=== PATIENT | female | born 1945 | race Caucasian/White ===

== ENCOUNTER 2018-07-13 15:02 | Outpatient (CLI) | payer MEDICARE ==
[~2018-07-13 15:02] MED LIST: ADVAIR INH; ALBU18HF INH; BLOOD PRESSURE MED; BUDE10.2 INH; FURO-93 PO; LISI-466 PO; LISI5TAB7 PO; OMNIPAQUE 350 MG/ML, 100ML BOTTLE ONE; POTA10TA5 PO
[2018-07-18] MEDS ORDERED: POTA10CA PO (13:31)
[2018-07-18] MEDS ORDERED: FURO20TA3 PO (13:31)
[2018-07-18] MEDS ORDERED: iron PO (13:31)
== END 2018-07-13 23:59 | disposition home or self-care (01) ==
LOC: CFH 15:02
PROVIDERS: ATTEND Thoracic Surgery (Cardiothoracic Vascular Surgery)
DX: I70.0 Atherosclerosis of aorta (principal); K44.9 Diaphragmatic hernia without obstruction or gangrene; R91.1 Solitary pulmonary nodule; I10 Essential (primary) hypertension; K21.9 Gastro-esophageal reflux disease without esophagitis; M19.90 Unspecified osteoarthritis, unspecified site; Z79.899 Other long term (current) drug therapy; Z87.891 Personal history of nicotine dependence; E78.00 Pure hypercholesterolemia, unspecified
CPT/HCPCS: 71275; 82565; Q9967

== ENCOUNTER 2018-07-19 04:29 | Inpatient (IN) | payer MEDICARE ==
[2018-07-18 14:04] LABS: MICROSCOPIC NOT IND
[2018-07-18 14:13] LABS: BASOPHILS # (AUTO) 0.04 x10^3/uL (0-0.1); BASOPHILS % (AUTO) 0 % (0-1); EOSINOPHILS # (AUTO) 0.05 x10^3/uL (0-0.4); EOSINOPHILS % (AUTO) 1 % (1-7); LYMPHOCYTES # (AUTO) 0.97 x10^3/uL (1-3.4); LYMPHOCYTES % (AUTO) 10 % (22-44); MD NO; MEAN CORPUSCULAR HEMOGLOBIN 26.2 pg (27.0-34.8); MEAN CORPUSCULAR HGB CONC 31.5 g/dL (32.4-35.8); MEAN CORPUSCULAR VOLUME 83.1 fL (80-100); MEAN PLATELET VOLUME 9.8 fL (7.4-10.4); MONOCYTES # (AUTO) 0.52 x10^3/uL (0.2-0.8); MONOCYTES % (AUTO) 6 % (2-9); NEUTROPHILS # (AUTO) 7.92 x10^3/uL (1.8-6.8); NEUTROPHILS % (AUTO) 83 % (42-75); PLATELET COUNT 349 x10^3/uL (130-400); RED CELL DISTRIBUTION WIDTH 20.1 % (9.6-15.2)
[2018-07-18 14:17] LABS: CHLORIDE 115 mmol/L (98-107)
[2018-07-18 14:23] LABS: ALANINE AMINOTRANSFERASE 9 U/L (12-78); ALBUMIN 3.6 g/dL (3.4-5.0); ALKALINE PHOSPHATASE 109 U/L (45-117); ANION GAP 9 mmol/L (5-15); BILIRUBIN,TOTAL 0.5 mg/dL (0.2-1.0); CALCIUM 8.6 mg/dL (8.5-10.1); CREATININE 1.64 mg/dL (0.55-1.02); TOTAL PROTEIN 7.9 g/dL (6.4-8.2)
[2018-07-18 14:28] LABS: INTERNATIONAL NORMALIZED RATIO 1.01 (0.93-1.1); PROTHROMBIN TIME 10.6 Seconds (9.6-11.5)
[2018-07-18 15:01] LABS: HEMOGLOBIN A1C 5.4 % (4.2-6.3)
[~2018-07-19] VITALS: Ht 160 cm; Wt 126.9 kg
[~2018-07-19 04:29] MED LIST changes: +FURO20TA3 PO; -OMNIPAQUE 350 MG/ML, 100ML BOTTLE ONE; +POTA10CA PO; +iron PO
[2018-07-19] MEDS ORDERED: INSULIN LISPRO 100 UNITS/ML, PEN SQ-INSULIN SCH (05:00)
[2018-07-19] MEDS ORDERED: DO NOT GIVE MC SCH (05:00)
[2018-07-19] MEDS ORDERED: CHLORHEXIDINE 15 ML UDC MM SCH (05:00)
[2018-07-19] MEDS ORDERED: DO NOT GIVE XX SCH (05:00)
[2018-07-19] MEDS: MUPIROCIN OINT 2%, 22GM TP SCH ×2 (05:26→20:25)
[2018-07-19] MEDS: SODIUM CHLORIDE FLUSH 10ML SYR IVF SCH ×3 (05:32→20:14)
[2018-07-19] MEDS ORDERED: MIDAZOLAM 10MG/2 ML ONE (07:09)
[2018-07-19] MEDS ORDERED: FENTANYL PF 250 MCG/5ML ONE ×4 (07:10)
[2018-07-19] MEDS ORDERED: ALBUMIN HUMAN 5% 500 ML IV PRN (07:30)
[2018-07-19] MEDS ORDERED: REGULAR INSULIN 62.5 UNITS in SODIUM CHLORIDE 0.9% 249.375 ML IV PRN ×2 (07:30→09:40)
[2018-07-19] MEDS ORDERED: PHENYLEPHRINE 10 MG in SODIUM CHLORIDE 0.9% 249 ML IV PRN ×2 (07:30→09:40)
[2018-07-19] MEDS ORDERED: MANNITOL PMX 20% 500 ML IVPB PRN (07:30)
[2018-07-19] MEDS ORDERED: CEFUROXIME 1.5 GM in SODIUM CHLORIDE 0.9% 50 ML IVPB PRN (07:30)
[2018-07-19] MEDS ORDERED: POTASSIUM CHLORIDE 80 MEQ, SODIUM BICARBONATE 8.4% 10 MEQ, MAGNESIUM SULFATE 0.5 GM, LI... IV PRN (07:30)
[2018-07-19] MEDS ORDERED: VANCOMYCIN 1,800 MG in SODIUM CHLORIDE 0.9% 250 ML IV PRN (07:30)
[2018-07-19] MEDS ORDERED: EPINEPHRINE 2 MG in SODIUM CHLORIDE 0.9% 248 ML IV SCH (07:30)
[2018-07-19] MEDS ORDERED: DEXMEDETOMIDINE 200 MCG in SODIUM CHLORIDE 0.9% 48 ML IV SCH (07:30)
[2018-07-19] MEDS: DOCUSATE 100 MG CAPSULE PO SCH ×2 (09:00→20:18)
[2018-07-19] MEDS ORDERED: VASOPRESSIN 50 UNIT in SODIUM CHLORIDE 0.9% 247.5 ML IV PRN (09:40)
[2018-07-19] MEDS ORDERED: SODIUM CHLORIDE 0.9% 1,000 ML IV PRN (09:40)
[2018-07-19] MEDS ORDERED: DEXMEDETOMIDINE 200 MCG in SODIUM CHLORIDE 0.9% 48 ML IV PRN (09:40)
[2018-07-19] MEDS ORDERED: DOBUTAMINE 250 MG in SODIUM CHLORIDE 0.9% 230 ML IV PRN (09:40)
[2018-07-19] MEDS ORDERED: NITROGLYCERIN/D5W PMX 250 ML IV PRN (09:40)
[2018-07-19] MEDS: KSCALE TO 4.5 IV SCH ×3 (10:00→22:25)
[2018-07-19] MEDS ORDERED: ACETAMINOPHEN 650 MG SUPP PR PRN (10:00)
[2018-07-19] MEDS ORDERED: SODIUM BICARB 8.4%, 50ML SYRINGE IV PRN (10:00)
[2018-07-19] MEDS ORDERED: INSULIN REGULAR 100 UNITS/ML, 3ML VIAL IVPush PRN (10:00)
[2018-07-19] MEDS ORDERED: DEXTROSE 50%, 50ML SYRINGE IVPush PRN (10:00)
[2018-07-19] MEDS ORDERED: BISACODYL 10 MG SUPP PR PRN (10:00)
[2018-07-19] MEDS: ASPIRIN 81 MG TABLET EC PO SCH (10:00)
[2018-07-19] MEDS ORDERED: ACETAMINOPHEN 325 MG TABLET PO PRN (10:00)
[2018-07-19] MEDS ORDERED: BISACODYL 5 MG EC TABLET PO PRN (10:00)
[2018-07-19] MEDS ORDERED: GLUCAGON 1 MG IM PRN (10:00)
[2018-07-19] MEDS ORDERED: MIDAZOLAM 1 MG/ML, 5ML IVPush PRN (10:00)
[2018-07-19] MEDS ORDERED: FENTANYL PF 100 MCG/2ML IVPush PRN (10:00)
[2018-07-19] MEDS ORDERED: morphine SULFATE 10 MG/ML, 1ML IVPush PRN (10:00)
[2018-07-19] MEDS ORDERED: LACTATED RINGERS 1,000 ML IV PRN (10:00)
[2018-07-19] MEDS ORDERED: PROCHLORPERAZINE 5 MG/ML, 2ML IVPush PRN (10:00)
[2018-07-19] MEDS ORDERED: DEXTROSE 4 GM TAB.CHEW PO PRN (10:00)
[2018-07-19] MEDS ORDERED: HYDROcodone/APAP 10/325 MG TABLET PO PRN (10:00)
[2018-07-19] MEDS ORDERED: PROTAMINE SULFATE 10 MG/ML, 25ML ONE ×2 (10:30)
[2018-07-19] MEDS: INSULIN LISPRO 100 UNITS/ML, PEN SQ-INSULIN SCH ×3 (11:00→20:25)
[2018-07-19] MEDS ORDERED: ROCURONIUM 10MG/ML,5ML ONE ×2 (11:06)
[2018-07-19] MEDS ORDERED: CALCIUM CHLORIDE 10%, 10ML SYR ONE (11:06)
[2018-07-19] MEDS ORDERED: PROPOFOL 10 MG/ML, 20ML ONE (11:06)
[2018-07-19] MEDS ORDERED: AMINOCAPROIC ACID 250 MG/ML, 20ML ONE ×2 (11:06)
[2018-07-19 12:45] LABS: GLUCOSE BY BLOOD GAS ANALYZER 93 mg/dL (70-110); HEMOGLOBIN BY BLOOD GAS ANALYZ 10.8 g/dL (14.0-18.0); POTASSIUM BY BLOOD GAS ANALYZR 4.9 mmol/L (3.6-5.5)
[2018-07-19 13:01] LABS: INTERNATIONAL NORMALIZED RATIO 1.33 (0.93-1.1); PROTHROMBIN TIME 13.8 Seconds (9.6-11.5)
[2018-07-19] MEDS ORDERED: methylPREDNISolone SOD SUCC 125 MG/2 ML ONE (13:14)
[2018-07-19] MEDS ORDERED: SODIUM BICARBONATE 1 MEQ/ML, 50ML VIAL ONE (13:14)
[2018-07-19] MEDS ORDERED: LIDOCAINE 2% 100MG/5ML SYRINGE ONE (13:14)
[2018-07-19] MEDS ORDERED: ALBUMIN HUMAN 25% 50 ML ONE (13:15)
[2018-07-19] MEDS ORDERED: HEPARIN 1,000 UNITS/ML, 30ML ONE (13:15)
[2018-07-19] MEDS: CEFUROXIME 1.5 GM in SODIUM CHLORIDE 0.9% 50 ML IVPB SCH (13:16)
[2018-07-19] MEDS: MAGNESIUM SULFATE 1 GM in SODIUM CHLORIDE 0.9% 50 ML IVPB SCH (13:16)
[2018-07-19] MEDS: OXYcodone IR 5MG TABLET PO PRN ×3 (17:43→23:22)
[2018-07-19] MEDS ORDERED: ALBUMIN HUMAN 5% 500 ML IV ONE ×2 (18:30→20:30)
[2018-07-19] MEDS ORDERED: FUROSEMIDE 20 MG/2 ML IV SCH (18:30)
[2018-07-19] MEDS: MUPIROCIN OINT 2%, 22GM NAS SCH (20:02)
[2018-07-19] MEDS: VANCOMYCIN 1,800 MG in SODIUM CHLORIDE 0.9% 250 ML IVPB SCH (20:14)
[2018-07-19] MEDS ORDERED: ALBUTEROL/IPRATROPIUM 2.5MG/0.5MG, 3 ML NPPB PRN (20:30)
[2018-07-19] MEDS ORDERED: DEXTROSE 50%, 50ML SYRINGE IVPush ONE (23:00)
[2018-07-19] MEDS ORDERED: INSULIN REGULAR 100 UNITS/ML, 3ML VIAL IVPush ONE (23:00)
[2018-07-20] MEDS: EPINEPHRINE 2 MG in SODIUM CHLORIDE 0.9% 248 ML IV PRN ×2 (00:45→12:11)
[2018-07-20] MEDS: CEFUROXIME 1.5 GM in SODIUM CHLORIDE 0.9% 50 ML IVPB SCH (00:49)
[2018-07-20] MEDS: INSULIN LISPRO 100 UNITS/ML, PEN SQ-INSULIN SCH ×6 (00:54→21:07)
[2018-07-20 04:05] LABS: MEAN CORPUSCULAR HEMOGLOBIN 27.1 pg (27.0-34.8); MEAN CORPUSCULAR HGB CONC 31.7 g/dL (32.4-35.8); MEAN CORPUSCULAR VOLUME 85.6 fL (80-100); MEAN PLATELET VOLUME 10.2 fL (7.4-10.4); PLATELET COUNT 178 x10^3/uL (130-400); RED BLOOD COUNT 3.47 x10^6/uL (3.82-5.3); RED CELL DISTRIBUTION WIDTH 19.8 % (9.6-15.2)
[2018-07-20 04:08] LABS: INTERNATIONAL NORMALIZED RATIO 1.1 (0.93-1.1); PROTHROMBIN TIME 11.5 Seconds (9.6-11.5)
[2018-07-20 04:10] LABS: ALBUMIN 3.7 g/dL (3.4-5.0); ANION GAP 12 mmol/L (5-15); CALCIUM 8.4 mg/dL (8.5-10.1); CHLORIDE 114 mmol/L (98-107)
[2018-07-20 04:12] LABS: CREATININE 1.74 mg/dL (0.55-1.02)
[2018-07-20] MEDS: KSCALE TO 4.5 IV SCH (04:23)
[2018-07-20] MEDS ORDERED: SODIUM BICARB 8.4%, 50ML SYRINGE IVPush ONE (04:30)
[2018-07-20] MEDS: OXYcodone IR 5MG TABLET PO PRN ×3 (04:36→23:30)
[2018-07-20 05:51] LABS: MD YES
[2018-07-20 05:52] LABS: ANISOCYTOSIS 1+; BAND#(MANUAL) 1.17 x10^3/uL; BANDS%(MANUAL) 6 % (0-7); LYMPHS% (MANUAL) 1 % (22-44); MONOS#(MANUAL) 1.37 x10^3/uL (0.3-2.7); MONOS% (MANUAL) 7 % (2-9); SEG#(MANUAL) 16.77 x10^3/uL (1.8-6.8); SEGS% (MANUAL) 86 % (42-75)
[2018-07-20 05:53] LABS: <PLATELET ESTIMATE> ADEQUATE; <PLT MORPHOLOGY> NORMAL PLT MORPH
[2018-07-20] MEDS: ONDANSETRON 2MG/ML, 2ML IVPush PRN (06:28)
[2018-07-20] MEDS: VANCOMYCIN 1,800 MG in SODIUM CHLORIDE 0.9% 250 ML IVPB SCH (08:19)
[2018-07-20] MEDS: SODIUM CHLORIDE FLUSH 10ML SYR IVF SCH ×3 (08:45→20:59)
[2018-07-20] MEDS: ASPIRIN 81 MG TABLET EC PO SCH (08:46)
[2018-07-20] MEDS: DOCUSATE 100 MG CAPSULE PO SCH ×2 (08:48→21:02)
[2018-07-20] MEDS: MUPIROCIN OINT 2%, 22GM TP SCH ×2 (08:50→21:01)
[2018-07-20] MEDS: WARFARIN BIOPROSTHETIC VALVE PROTOCOL 2-3 XX SCH (08:51)
[2018-07-20] MEDS: MUPIROCIN OINT 2%, 22GM NAS SCH ×2 (08:51→21:01)
[2018-07-20] MEDS ORDERED: SODIUM CHLORIDE 0.9% 1,000 ML IV SCH ×2 (09:00→16:30)
[2018-07-20] MEDS: HYDROcodone/APAP 5/325 TABLET PO PRN ×2 (11:21→17:58)
[2018-07-20] MEDS: MAGNESIUM SULFATE 1 GM in SODIUM CHLORIDE 0.9% 50 ML IVPB SCH (11:21)
[2018-07-20 13:31] LABS: ANION GAP 9 mmol/L (5-15); CALCIUM 8.5 mg/dL (8.5-10.1); CHLORIDE 114 mmol/L (98-107)
[2018-07-20] MEDS ORDERED: SODIUM BICARB 8.4%, 50ML SYRINGE IVPush STA (14:57)
[2018-07-20] MEDS ORDERED: INSULIN REGULAR 100 UNITS/ML, 3ML VIAL IVPush ONE (15:00)
[2018-07-20] MEDS ORDERED: DEXTROSE 50%, 50ML SYRINGE IVPush ONE (15:00)
[2018-07-20] MEDS ORDERED: SODIUM BICARBONATE 1 MEQ/ML, 50ML VIAL ONE (15:35)
[2018-07-20] MEDS: SODIUM BICARBONATE 8.4% 150 MEQ in DEXTROSE 5% 1,000 ML IV SCH (17:09)
[2018-07-20] MEDS ORDERED: WARFARIN 5 MG TABLET PO-COUM ONE (18:00)
[2018-07-20 18:46] LABS: ANION GAP 9 mmol/L (5-15); CALCIUM 8.2 mg/dL (8.5-10.1); CHLORIDE 114 mmol/L (98-107); CREATININE 2.44 mg/dL (0.55-1.02)
[2018-07-20] MEDS: CHLORHEXIDINE 15 ML UDC MM SCH (20:55)
[2018-07-21 00:56] LABS: ANION GAP 8 mmol/L (5-15); CALCIUM 8.1 mg/dL (8.5-10.1); CHLORIDE 111 mmol/L (98-107); CREATININE 2.64 mg/dL (0.55-1.02)
[2018-07-21] MEDS: SODIUM BICARBONATE 8.4% 150 MEQ in DEXTROSE 5% 1,000 ML IV SCH ×2 (00:57→10:01)
[2018-07-21] MEDS: INSULIN LISPRO 100 UNITS/ML, PEN SQ-INSULIN SCH ×6 (00:58→20:00)
[2018-07-21] MEDS ORDERED: EPINEPHRINE 2 MG in SODIUM CHLORIDE 0.9% 248 ML IV PRN (02:30)
[2018-07-21 04:39] LABS: MEAN CORPUSCULAR HGB CONC 31.7 g/dL (32.4-35.8); MEAN CORPUSCULAR VOLUME 85.3 fL (80-100); MEAN PLATELET VOLUME 10.8 fL (7.4-10.4); PLATELET COUNT 111 x10^3/uL (130-400); RED CELL DISTRIBUTION WIDTH 20.1 % (9.6-15.2)
[2018-07-21 04:45] LABS: INTERNATIONAL NORMALIZED RATIO 1.03 (0.93-1.1); PROTHROMBIN TIME 10.8 Seconds (9.6-11.5)
[2018-07-21 04:52] LABS: ANION GAP 6 mmol/L (5-15); CALCIUM 8.1 mg/dL (8.5-10.1); CHLORIDE 111 mmol/L (98-107); CREATININE 2.62 mg/dL (0.55-1.02)
[2018-07-21 05:20] LABS: BASOPHILS # (AUTO) 0.07 x10^3/uL (0-0.1); BASOPHILS % (AUTO) 0 % (0-1); EOSINOPHILS % (AUTO) 0 % (1-7); LYMPHOCYTES # (AUTO) 0.85 x10^3/uL (1-3.4); LYMPHOCYTES % (AUTO) 5 % (22-44); MD SCAN; MONOCYTES # (AUTO) 1.68 x10^3/uL (0.2-0.8); MONOCYTES % (AUTO) 10 % (2-9); NEUTROPHILS # (AUTO) 14.38 x10^3/uL (1.8-6.8); NEUTROPHILS % (AUTO) 85 % (42-75)
[2018-07-21 05:30] LABS: POTASSIUM,URINE RANDOM 64 mmol/L; PROTEIN/CREATININE RATIO,URINE 654 (0-200); SODIUM,URINE RANDOM 22 mmol/L; TOTAL PROTEIN,URINE RANDOM 87 mg/dL (0-12)
[2018-07-21 05:34] LABS: CHLORIDE,URINE RANDOM < 10 mmol/L
[2018-07-21 06:34] LABS: CULTURE INDICATED? YES; MICROSCOPIC INDICATED
[2018-07-21 07:24] LABS: ALANINE AMINOTRANSFERASE 15 U/L (12-78); ALBUMIN 3.2 g/dL (3.4-5.0); ANION GAP 8 mmol/L (5-15); CHLORIDE 109 mmol/L (98-107); CREATININE 2.73 mg/dL (0.55-1.02); IRON LEVEL 14 mcg/dL (50-170)
[2018-07-21 07:28] LABS: % IRON SATURATION 7 % (20-55); ALKALINE PHOSPHATASE 67 U/L (45-117); BILIRUBIN,TOTAL 0.5 mg/dL (0.2-1.0); TOTAL IRON BINDING CAPACITY 214 mcg/dL (250-450); TOTAL PROTEIN 6.3 g/dL (6.4-8.2)
[2018-07-21] MEDS: DOCUSATE 100 MG CAPSULE PO SCH ×2 (08:19→21:50)
[2018-07-21] MEDS: CHLORHEXIDINE 15 ML UDC MM SCH ×2 (08:19→21:50)
[2018-07-21] MEDS: ASPIRIN 81 MG TABLET EC PO SCH (08:19)
[2018-07-21] MEDS: HYDROcodone/APAP 5/325 TABLET PO PRN ×2 (08:19→17:23)
[2018-07-21] MEDS: SODIUM CHLORIDE FLUSH 10ML SYR IVF SCH ×2 (08:20→21:52)
[2018-07-21] MEDS: MUPIROCIN OINT 2%, 22GM NAS SCH ×2 (08:20→21:00)
[2018-07-21] MEDS: WARFARIN BIOPROSTHETIC VALVE PROTOCOL 2-3 XX SCH (08:20)
[2018-07-21] MEDS: MUPIROCIN OINT 2%, 22GM TP SCH ×2 (08:20→21:51)
[2018-07-21] MEDS ORDERED: ERGOCALCIFEROL 50,000 UNIT CAPSULE PO SCH (11:00)
[2018-07-21 11:35] LABS: ANION GAP 6 mmol/L (5-15); CALCIUM 8.1 mg/dL (8.5-10.1); CHLORIDE 108 mmol/L (98-107)
[2018-07-21 11:38] LABS: CREATININE 2.89 mg/dL (0.55-1.02)
[2018-07-21] MEDS: IRON SUCROSE COMPLEX 100MG/5ML IV SCH (13:24)
[2018-07-21] MEDS: ONDANSETRON 2MG/ML, 2ML IVPush PRN (17:23)
[2018-07-21] MEDS ORDERED: WARFARIN 5 MG TABLET PO-COUM ONE (18:00)
[2018-07-21] MEDS: SODIUM CHLORIDE 0.9% 1,000 ML IV SCH (21:51)
[2018-07-22] MEDS: INSULIN LISPRO 100 UNITS/ML, PEN SQ-INSULIN SCH ×6 (04:00→20:00)
[2018-07-22 04:48] LABS: BASOPHILS # (AUTO) 0.05 x10^3/uL (0-0.1); BASOPHILS % (AUTO) 0 % (0-1); EOSINOPHILS # (AUTO) 0.02 x10^3/uL (0-0.4); EOSINOPHILS % (AUTO) 0 % (1-7); INTERNATIONAL NORMALIZED RATIO 1.22 (0.93-1.1); LYMPHOCYTES # (AUTO) 0.73 x10^3/uL (1-3.4); LYMPHOCYTES % (AUTO) 6 % (22-44); MD NO; MEAN CORPUSCULAR HEMOGLOBIN 26.9 pg (27.0-34.8); MEAN CORPUSCULAR HGB CONC 31.4 g/dL (32.4-35.8); MEAN CORPUSCULAR VOLUME 85.8 fL (80-100); MEAN PLATELET VOLUME 10.7 fL (7.4-10.4); MONOCYTES # (AUTO) 1.21 x10^3/uL (0.2-0.8); MONOCYTES % (AUTO) 9 % (2-9); NEUTROPHILS # (AUTO) 11.17 x10^3/uL (1.8-6.8); NEUTROPHILS % (AUTO) 85 % (42-75); PLATELET COUNT 131 x10^3/uL (130-400); PROTHROMBIN TIME 12.7 Seconds (9.6-11.5); RED BLOOD COUNT 3.59 x10^6/uL (3.82-5.3); RED CELL DISTRIBUTION WIDTH 19.5 % (9.6-15.2)
[2018-07-22 07:46] LABS: CALCIUM 7.8 mg/dL (8.5-10.1); CHLORIDE 112 mmol/L (98-107)
[2018-07-22 07:52] LABS: ALANINE AMINOTRANSFERASE 12 U/L (12-78); ALBUMIN 2.8 g/dL (3.4-5.0); ALKALINE PHOSPHATASE 64 U/L (45-117); ANION GAP 8 mmol/L (5-15); BILIRUBIN,TOTAL 0.3 mg/dL (0.2-1.0); CREATINE KINASE, TOTAL 139 U/L (26-192); CREATININE 2.64 mg/dL (0.55-1.02); TOTAL PROTEIN 5.9 g/dL (6.4-8.2)
[2018-07-22] MEDS: WARFARIN BIOPROSTHETIC VALVE PROTOCOL 2-3 XX SCH (08:20)
[2018-07-22] MEDS: DOCUSATE 100 MG CAPSULE PO SCH ×2 (09:29→20:40)
[2018-07-22] MEDS: MUPIROCIN OINT 2%, 22GM TP SCH (09:29)
[2018-07-22] MEDS: ASPIRIN 81 MG TABLET EC PO SCH (09:29)
[2018-07-22] MEDS: SODIUM CHLORIDE FLUSH 10ML SYR IVF SCH ×2 (09:29→20:40)
[2018-07-22] MEDS: MUPIROCIN OINT 2%, 22GM NAS SCH ×2 (09:29→20:40)
[2018-07-22] MEDS: CHLORHEXIDINE 15 ML UDC MM SCH (09:29)
[2018-07-22] MEDS: SODIUM CHLORIDE 0.9% 1,000 ML IV SCH (09:30)
[2018-07-22] MEDS ORDERED: FUROSEMIDE 40 MG/4 ML IV ONE (10:30)
[2018-07-22] MEDS: IRON SUCROSE COMPLEX 100MG/5ML IV SCH (11:26)
[2018-07-22] MEDS: CALCIUM CARBONATE 500 MG TABLET PO SCH ×2 (11:27→20:40)
[2018-07-22] MEDS: HYDROcodone/APAP 5/325 TABLET PO PRN (13:13)
[2018-07-22] MEDS ORDERED: SODIUM CHLORIDE 0.9% 1,000 ML IV SCH (16:30)
[2018-07-22] MEDS ORDERED: WARFARIN 5 MG TABLET PO-COUM ONE (18:00)
[2018-07-23] MEDS: INSULIN LISPRO 100 UNITS/ML, PEN SQ-INSULIN SCH ×6 (04:00→21:00)
[2018-07-23 04:43] LABS: BASOPHILS # (AUTO) 0.03 x10^3/uL (0-0.1); BASOPHILS % (AUTO) 0 % (0-1); EOSINOPHILS % (AUTO) 1 % (1-7); LYMPHOCYTES % (AUTO) 6 % (22-44); MD NO; MEAN CORPUSCULAR HEMOGLOBIN 27.1 pg (27.0-34.8); MEAN CORPUSCULAR HGB CONC 31.7 g/dL (32.4-35.8); MEAN CORPUSCULAR VOLUME 85.8 fL (80-100); MEAN PLATELET VOLUME 10.5 fL (7.4-10.4); MONOCYTES # (AUTO) 0.24 x10^3/uL (0.2-0.8); MONOCYTES % (AUTO) 2 % (2-9); NEUTROPHILS # (AUTO) 10.89 x10^3/uL (1.8-6.8); NEUTROPHILS % (AUTO) 91 % (42-75); PLATELET COUNT 150 x10^3/uL (130-400); RED BLOOD COUNT 3.44 x10^6/uL (3.82-5.3); RED CELL DISTRIBUTION WIDTH 19.3 % (9.6-15.2)
[2018-07-23 04:48] LABS: INTERNATIONAL NORMALIZED RATIO 1.67 (0.93-1.1); PROTHROMBIN TIME 17.2 Seconds (9.6-11.5)
[2018-07-23 04:53] LABS: ALBUMIN 2.6 g/dL (3.4-5.0); ANION GAP 9 mmol/L (5-15); CALCIUM 7.9 mg/dL (8.5-10.1); CHLORIDE 111 mmol/L (98-107)
[2018-07-23 04:57] LABS: ALANINE AMINOTRANSFERASE 13 U/L (12-78); ALKALINE PHOSPHATASE 63 U/L (45-117); BILIRUBIN,TOTAL 0.4 mg/dL (0.2-1.0); CREATININE 2.23 mg/dL (0.55-1.02); TOTAL PROTEIN 5.9 g/dL (6.4-8.2)
[2018-07-23] MEDS: DOCUSATE 100 MG CAPSULE PO SCH ×2 (08:28→21:19)
[2018-07-23] MEDS: CALCIUM CARBONATE 500 MG TABLET PO SCH ×2 (08:28→21:19)
[2018-07-23] MEDS: ASPIRIN 81 MG TABLET EC PO SCH (08:29)
[2018-07-23] MEDS: SODIUM CHLORIDE FLUSH 10ML SYR IVF SCH ×2 (08:30→21:19)
[2018-07-23] MEDS: WARFARIN BIOPROSTHETIC VALVE PROTOCOL 2-3 XX SCH (09:00)
[2018-07-23] MEDS ORDERED: BISACODYL 10 MG SUPP PR PRN (09:00)
[2018-07-23] MEDS: MUPIROCIN OINT 2%, 22GM NAS SCH ×2 (09:00→21:00)
[2018-07-23] MEDS: CALCITRIOL 0.25 MCG CAPSULE PO SCH (10:10)
[2018-07-23] MEDS: FUROSEMIDE 40 MG/4 ML IV SCH (10:12)
[2018-07-23] MEDS: IRON SUCROSE COMPLEX 100MG/5ML IV SCH (11:55)
[2018-07-23] MEDS ORDERED: WARFARIN 5 MG TABLET PO-COUM ONE (18:00)
[2018-07-23 20:15] VITALS: BP 131/76
[2018-07-23] MEDS: SENNA/DOCUSATE TABLET PO SCH (21:21)
[2018-07-24 03:54] VITALS: BP 118/57
[2018-07-24 04:33] LABS: BASOPHILS # (AUTO) 0.01 x10^3/uL (0-0.1); BASOPHILS % (AUTO) 0 % (0-1); EOSINOPHILS # (AUTO) 0.22 x10^3/uL (0-0.4); EOSINOPHILS % (AUTO) 2 % (1-7); LYMPHOCYTES # (AUTO) 0.67 x10^3/uL (1-3.4); LYMPHOCYTES % (AUTO) 6 % (22-44); MD NO; MEAN CORPUSCULAR HGB CONC 31.5 g/dL (32.4-35.8); MEAN CORPUSCULAR VOLUME 85.6 fL (80-100); MEAN PLATELET VOLUME 9.6 fL (7.4-10.4); MONOCYTES # (AUTO) 0.62 x10^3/uL (0.2-0.8); MONOCYTES % (AUTO) 6 % (2-9); NEUTROPHILS # (AUTO) 9.77 x10^3/uL (1.8-6.8); NEUTROPHILS % (AUTO) 87 % (42-75); PLATELET COUNT 193 x10^3/uL (130-400); RED BLOOD COUNT 3.59 x10^6/uL (3.82-5.3); RED CELL DISTRIBUTION WIDTH 19.4 % (9.6-15.2)
[2018-07-24 04:36] LABS: INTERNATIONAL NORMALIZED RATIO 2.66 (0.93-1.1); PROTHROMBIN TIME 26.9 Seconds (9.6-11.5)
[2018-07-24 04:38] LABS: ALBUMIN 2.6 g/dL (3.4-5.0); ANION GAP 6 mmol/L (5-15); CALCIUM 8.2 mg/dL (8.5-10.1); CHLORIDE 110 mmol/L (98-107)
[2018-07-24 04:42] LABS: ALANINE AMINOTRANSFERASE 12 U/L (12-78); ALKALINE PHOSPHATASE 66 U/L (45-117); BILIRUBIN,TOTAL 0.5 mg/dL (0.2-1.0); CREATININE 1.62 mg/dL (0.55-1.02); TOTAL PROTEIN 5.9 g/dL (6.4-8.2)
[2018-07-24 05:22] VITALS: BP 147/67
[2018-07-24] MEDS: INSULIN LISPRO 100 UNITS/ML, PEN SQ-INSULIN SCH (07:00)
[2018-07-24] MEDS: WARFARIN BIOPROSTHETIC VALVE PROTOCOL 2-3 XX SCH (07:08)
[2018-07-24] MEDS: SODIUM CHLORIDE FLUSH 10ML SYR IVF SCH ×2 (07:09→20:46)
[2018-07-24] MEDS: ASPIRIN 81 MG TABLET EC PO SCH (07:42)
[2018-07-24] MEDS: DOCUSATE 100 MG CAPSULE PO SCH ×2 (07:42→20:46)
[2018-07-24] MEDS: FUROSEMIDE 40 MG/4 ML IV SCH (07:43)
[2018-07-24] MEDS: MUPIROCIN OINT 2%, 22GM NAS SCH (07:43)
[2018-07-24] MEDS: CALCIUM CARBONATE 500 MG TABLET PO SCH ×2 (07:43→20:45)
[2018-07-24 08:49] VITALS: BP 100/61
[2018-07-24] MEDS: IRON SUCROSE COMPLEX 100MG/5ML IV SCH (10:37)
[2018-07-24] MEDS: LACTULOSE 20 GM/30 ML UDC PO PRN (14:53)
[2018-07-24 15:59] VITALS: BP 117/74
[2018-07-24] MEDS ORDERED: WARFARIN 1 MG TABLET PO-COUM ONE (18:00)
[2018-07-24 20:31] VITALS: BP 137/90
[2018-07-24] MEDS: SENNA/DOCUSATE TABLET PO SCH (20:46)
[2018-07-25 01:22] VITALS: BP 159/75
[2018-07-25 03:14] VITALS: BP 145/62
[2018-07-25 05:39] LABS: BASOPHILS # (AUTO) 0.04 x10^3/uL (0-0.1); BASOPHILS % (AUTO) 0 % (0-1); EOSINOPHILS # (AUTO) 0.26 x10^3/uL (0-0.4); EOSINOPHILS % (AUTO) 3 % (1-7); LYMPHOCYTES # (AUTO) 0.85 x10^3/uL (1-3.4); LYMPHOCYTES % (AUTO) 8 % (22-44); MD NO; MEAN CORPUSCULAR HEMOGLOBIN 27.3 pg (27.0-34.8); MEAN CORPUSCULAR HGB CONC 31.7 g/dL (32.4-35.8); MEAN CORPUSCULAR VOLUME 86.2 fL (80-100); MEAN PLATELET VOLUME 9.9 fL (7.4-10.4); MONOCYTES # (AUTO) 0.93 x10^3/uL (0.2-0.8); MONOCYTES % (AUTO) 9 % (2-9); NEUTROPHILS # (AUTO) 8.06 x10^3/uL (1.8-6.8); NEUTROPHILS % (AUTO) 80 % (42-75); PLATELET COUNT 203 x10^3/uL (130-400); RED BLOOD COUNT 3.48 x10^6/uL (3.82-5.3); RED CELL DISTRIBUTION WIDTH 18.9 % (9.6-15.2)
[2018-07-25 05:44] LABS: INTERNATIONAL NORMALIZED RATIO 2.6 (0.93-1.1); PROTHROMBIN TIME 26.3 Seconds (9.6-11.5)
[2018-07-25 06:11] LABS: CHLORIDE 108 mmol/L (98-107)
[2018-07-25 06:21] LABS: ALANINE AMINOTRANSFERASE 11 U/L (12-78); ALBUMIN 2.4 g/dL (3.4-5.0); ALKALINE PHOSPHATASE 59 U/L (45-117); ANION GAP 8 mmol/L (5-15); BILIRUBIN,TOTAL 0.5 mg/dL (0.2-1.0); CALCIUM 8.1 mg/dL (8.5-10.1); CREATININE 1.23 mg/dL (0.55-1.02); TOTAL PROTEIN 5.7 g/dL (6.4-8.2)
[2018-07-25] MEDS ORDERED: AMLODIPINE 5 MG TABLET PO ONE (08:00)
[2018-07-25 08:25] VITALS: BP 125/68
[2018-07-25] MEDS: LACTULOSE 20 GM/30 ML UDC PO PRN (08:38)
[2018-07-25] MEDS: CALCITRIOL 0.25 MCG CAPSULE PO SCH (08:38)
[2018-07-25] MEDS: ASPIRIN 81 MG TABLET EC PO SCH (08:38)
[2018-07-25] MEDS: CALCIUM CARBONATE 500 MG TABLET PO SCH ×2 (08:38→20:47)
[2018-07-25] MEDS: DOCUSATE 100 MG CAPSULE PO SCH ×2 (08:38→20:47)
[2018-07-25] MEDS: FUROSEMIDE 40 MG/4 ML IV SCH (08:39)
[2018-07-25] MEDS: SODIUM CHLORIDE FLUSH 10ML SYR IVF SCH ×2 (08:39→20:47)
[2018-07-25] MEDS: WARFARIN BIOPROSTHETIC VALVE PROTOCOL 2-3 XX SCH (08:39)
[2018-07-25] MEDS: IRON SUCROSE COMPLEX 100MG/5ML IV SCH (10:29)
[2018-07-25 12:49] VITALS: BP 125/74
[2018-07-25 19:17] VITALS: BP 128/64
[2018-07-26 01:00] VITALS: BP 114/71
[2018-07-26 06:00] LABS: ANION GAP 6 mmol/L (5-15); CHLORIDE 108 mmol/L (98-107)
[2018-07-26 06:01] LABS: CREATININE 1.09 mg/dL (0.55-1.02)
[2018-07-26 06:18] LABS: INTERNATIONAL NORMALIZED RATIO 2.54 (0.93-1.1); PROTHROMBIN TIME 25.7 Seconds (9.6-11.5)
[2018-07-26 07:58] VITALS: BP 119/76
[2018-07-26] MEDS: LACTULOSE 20 GM/30 ML UDC PO PRN (08:37)
[2018-07-26] MEDS: ASPIRIN 81 MG TABLET EC PO SCH (08:38)
[2018-07-26] MEDS: SODIUM CHLORIDE FLUSH 10ML SYR IVF SCH ×2 (08:38→20:12)
[2018-07-26] MEDS: CALCIUM CARBONATE 500 MG TABLET PO SCH ×2 (08:38→20:12)
[2018-07-26] MEDS: FUROSEMIDE 40 MG/4 ML IV SCH (08:38)
[2018-07-26] MEDS: DOCUSATE 100 MG CAPSULE PO SCH ×2 (08:38→20:12)
[2018-07-26] MEDS: WARFARIN BIOPROSTHETIC VALVE PROTOCOL 2-3 XX SCH (09:00)
[2018-07-26 13:10] VITALS: BP 122/79
[2018-07-26] MEDS ORDERED: MAGNESIUM HYDROXIDE 8%, 30ML UDC PO PRN (14:30)
[2018-07-26] MEDS ORDERED: WARFARIN 1 MG TABLET PO-COUM ONE (18:00)
[2018-07-26 20:53] VITALS: BP 103/67
[2018-07-27 01:52] VITALS: BP 94/65
[2018-07-27 06:07] LABS: INTERNATIONAL NORMALIZED RATIO 2.52 (0.93-1.1); PROTHROMBIN TIME 25.5 Seconds (9.6-11.5)
[2018-07-27 06:11] LABS: ANION GAP 6 mmol/L (5-15); CALCIUM 8.2 mg/dL (8.5-10.1); CHLORIDE 106 mmol/L (98-107); CREATININE 1.25 mg/dL (0.55-1.02)
[2018-07-27] MEDS ORDERED: CALC500T11 PO (08:17)
[2018-07-27] MEDS ORDERED: ASPI81TA45 PO (08:17)
[2018-07-27] MEDS ORDERED: HYDR-3237 PO (08:17)
[2018-07-27] MEDS ORDERED: WARF5TAB PO (08:17)
[2018-07-27] MEDS ORDERED: CALC0.25 PO (08:17)
[2018-07-27] MEDS ORDERED: ERGO500017 PO (08:17)
[2018-07-27 08:26] VITALS: BP 114/65
[2018-07-27] MEDS: SODIUM CHLORIDE FLUSH 10ML SYR IVF SCH (09:00)
[2018-07-27] MEDS: WARFARIN BIOPROSTHETIC VALVE PROTOCOL 2-3 XX SCH (09:00)
[2018-07-27] MEDS: ASPIRIN 81 MG TABLET EC PO SCH (09:02)
[2018-07-27] MEDS: CALCIUM CARBONATE 500 MG TABLET PO SCH (09:02)
[2018-07-27] MEDS: DOCUSATE 100 MG CAPSULE PO SCH (09:03)
[2018-07-27] MEDS: CALCITRIOL 0.25 MCG CAPSULE PO SCH (09:03)
[2018-07-27] MEDS ORDERED: WARFARIN 2.5 MG TABLET PO-COUM ONE (18:00)
== END 2018-07-27 10:50 | disposition home health service (06) | DRG 219 ==
LOC: 5SO 04:29 → CCU 09:07 → 5SO 07-24 05:10 → DCLOUNGE 07-27 10:26
PROVIDERS: ADMIT Thoracic Surgery (Cardiothoracic Vascular Surgery); ATTEND Thoracic Surgery (Cardiothoracic Vascular Surgery)
PROC: 02RG08Z Replacement of Mitral Valve with Zooplastic Tissue, Open Approach (ICD-10-PCS; 2018-07-19)
PROC: 5A1221Z Performance of Cardiac Output, Continuous (ICD-10-PCS; 2018-07-19)
PROC: B246ZZ4 Ultrasonography of Right and Left Heart, Transesophageal (ICD-10-PCS; 2018-07-19)
PROC: 30233N1 Transfusion of Nonautologous Red Blood Cells into Peripheral Vein, Percutaneous Approach (ICD-10-PCS; 2018-07-19)
PROC: 03HY32Z Insertion of Monitoring Device into Upper Artery, Percutaneous Approach (ICD-10-PCS; 2018-07-19)
PROC: 02RF08Z Replacement of Aortic Valve with Zooplastic Tissue, Open Approach (ICD-10-PCS; principal; 2018-07-19 07:30)
DX: I08.0 Rheumatic disorders of both mitral and aortic valves (principal); I50.33 Acute on chronic diastolic (congestive) heart failure; E87.4 Mixed disorder of acid-base balance; I13.0 Hypertensive heart and chronic kidney disease with heart failure and stage 1 through stage 4 chronic kidney disease, or unspecified chronic kidney disease; Z68.42 Body mass index [BMI] 45.0-49.9, adult; N17.9 Acute kidney failure, unspecified; D63.8 Anemia in other chronic diseases classified elsewhere; D72.829 Elevated white blood cell count, unspecified; E83.52 Hypercalcemia; E87.5 Hyperkalemia; F03.90 Unspecified dementia, unspecified severity, without behavioral disturbance, psychotic disturbance, mood disturbance, and anxiety; F17.210 Nicotine dependence, cigarettes, uncomplicated; I25.10 Atherosclerotic heart disease of native coronary artery without angina pectoris; I27.20 Pulmonary hypertension, unspecified; I48.91 Unspecified atrial fibrillation; J45.40 Moderate persistent asthma, uncomplicated; K21.9 Gastro-esophageal reflux disease without esophagitis; N18.3 Chronic kidney disease, stage 3 (moderate); N25.0 Renal osteodystrophy; Z51.5 Encounter for palliative care; Z75.1 Person awaiting admission to adequate facility elsewhere; Z79.01 Long term (current) use of anticoagulants; Z84.1 Family history of disorders of kidney and ureter; Z98.84 Bariatric surgery status; E66.01 Morbid (severe) obesity due to excess calories; Z71.3 Dietary counseling and surveillance
CPT/HCPCS: 36415; 36600; 71045; 71046; 76770; 80048; 80053; 81001; 81003; 82040; 82306; 82330; 82436; 82550; 82570; 82728; 82800; 82803; 82810; 82947; 82962; 83036; 83540; 83550; 83735; 83970; 84100; 84132; 84133; 84156; 84295; 84300; 84550; 85014; 85018; 85025; 85049; 85347; 85610; 85730; 86850; 86900; 86923; 87081; 87086; 88305; 88311; 93005; 93312; 93321; 93325; 93880; 94002; C1768; G0378; J0697; J1644; J1756; J1815; J1940; J2250; J2405; J2704; J2720; J3010; J3370; J3475; J3480; J7070; P9045; P9047; J0171; J2370; J2930; J7030; J7050; J7120; P9016

== ENCOUNTER 2018-09-28 08:59 | Day surgery (SDC) | payer MEDICARE ==
[~2018-09-28] VITALS: Ht 160 cm; Wt 118.6 kg
[~2018-09-28 08:59] MED LIST changes: +ASPI81TA45 PO; +CALC0.25 PO; +CALC500T11 PO; +ERGO500017 PO; +HYDR-3237 PO; +WARF5TAB PO
[2018-09-28] MEDS ORDERED: WARF2.5T32 PO (09:34)
[2018-09-28] MEDS ORDERED: ATOR40TA78 PO (09:35)
[2018-09-28 09:41] VITALS: BP 186/108
[2018-09-28 10:04] LABS: INTERNATIONAL NORMALIZED RATIO 2.3 (0.93-1.1); PROTHROMBIN TIME 23.4 Seconds (9.6-11.5)
[2018-09-28 10:10] LABS: ANION GAP 7 mmol/L (5-15); CALCIUM 8.5 mg/dL (8.5-10.1); CHLORIDE 111 mmol/L (98-107); CREATININE 0.94 mg/dL (0.55-1.02)
[2018-09-28] MEDS ORDERED: PROPOFOL 10 MG/ML, 20ML ONE (11:04)
[2018-09-28] MEDS ORDERED: SODIUM CHLORIDE FLUSH 10ML SYR IVF SCH (21:00)
== END 2018-09-28 12:43 | disposition home or self-care (01) ==
LOC: CACL 08:59
PROVIDERS: ATTEND Internal Medicine Cardiovascular Disease
DX: I48.0 Paroxysmal atrial fibrillation (principal); I27.20 Pulmonary hypertension, unspecified; I12.9 Hypertensive chronic kidney disease with stage 1 through stage 4 chronic kidney disease, or unspecified chronic kidney disease; N18.9 Chronic kidney disease, unspecified; J45.909 Unspecified asthma, uncomplicated; Z79.82 Long term (current) use of aspirin; Z79.899 Other long term (current) drug therapy; Z88.8 Allergy status to other drugs, medicaments and biological substances; Z95.2 Presence of prosthetic heart valve
CPT/HCPCS: 36415; 80048; 85610; 92960; 93005; J2704

== ENCOUNTER 2019-09-27 08:09 | Inpatient (IN) | payer MEDICARE ==
[~2019-09-27] VITALS: Ht 160 cm; Wt 107.6 kg
[~2019-09-27 08:09] MED LIST changes: +ATOR40TA78 PO; +WARF2.5T32 PO; -WARF5TAB PO; +WARF5TAB2 PO
[2019-09-27] MEDS ORDERED: FERR-46 PO (08:37)
[2019-09-27 08:43] LABS: BASOPHILS # (AUTO) 0.03 x10^3/uL (0-0.1); BASOPHILS % (AUTO) 0 % (0-1); EOSINOPHILS # (AUTO) 0.13 x10^3/uL (0-0.4); EOSINOPHILS % (AUTO) 2 % (1-7); LYMPHOCYTES # (AUTO) 1.27 x10^3/uL (1-3.4); LYMPHOCYTES % (AUTO) 15 % (22-44); MD NO; MEAN CORPUSCULAR HEMOGLOBIN 28.5 pg (27.0-34.8); MEAN CORPUSCULAR HGB CONC 32.1 g/dL (32.4-35.8); MEAN CORPUSCULAR VOLUME 88.9 fL (80-100); MEAN PLATELET VOLUME 9.4 fL (7.4-10.4); MONOCYTES # (AUTO) 0.46 x10^3/uL (0.2-0.8); MONOCYTES % (AUTO) 6 % (2-9); NEUTROPHILS # (AUTO) 6.51 x10^3/uL (1.8-6.8); NEUTROPHILS % (AUTO) 78 % (42-75); PLATELET COUNT 230 x10^3/uL (130-400); RED BLOOD COUNT 4.67 x10^6/uL (3.82-5.3); RED CELL DISTRIBUTION WIDTH 14.5 % (9.6-15.2)
[2019-09-27 08:55] LABS: ALANINE AMINOTRANSFERASE 27 U/L (12-78); ALBUMIN 3.2 g/dL (3.4-5.0); CALCIUM 8.3 mg/dL (8.5-10.1); CREATININE 1.36 mg/dL (0.55-1.02)
[2019-09-27 08:59] LABS: ALKALINE PHOSPHATASE 84 U/L (45-117); BILIRUBIN,TOTAL 0.6 mg/dL (0.2-1.0); TOTAL PROTEIN 7.5 g/dL (6.4-8.2); TROPONIN I < 0.015 ng/mL (0.000-0.045)
[2019-09-27 09:00] LABS: ANION GAP 10 mmol/L (5-15)
[2019-09-27 09:01] LABS: CHLORIDE 114 mmol/L (98-107)
--- NOTE | 2019-09-27 09:05 | NUR ---
PT UPRIGHT ON GURNEY AWAKE & COMFORTABLE, RESPONDS APPROP TO STAFF, NAD OR C/O DIZZINESS/SOB AT THIS TIME, COMFORT MEASURES PROVIDED, CALL LIGHT WITHIN REACH.
--- NOTE | 2019-09-27 09:05 | NUR ---
Julian hernandez in ED - 09/27/19 at 1009 by VERNA PT UPRIGHT ON GURNEY AWAKE & COMFORTABLE, RESPONDS APPROP TO STAFF, NAD OR C/O DIZZINESS/SOB AT THIS TIME, COMFORT MEASURES PROVIDED, CALL LIGHT WITHIN REACH.
[2019-09-27] MEDS ORDERED: SODIUM CHLORIDE 0.9%, 500ML IVBOLUS ONE (09:30)
--- NOTE | 2019-09-27 10:04 | NUR ---
PT UPRIGHT ON GURNEY AWAKE & COMFORTABLE, RESPONDS APPROP TO STAFF, NAD OR PAIN, COMFORT MEASURES PROVIDED, VISITOR AT BS, CALL LIGHT WITHIN REACH.
--- NOTE | 2019-09-27 10:56 | NUR ---
REPORT GIVEN TO GEETA DAILEY TRANSFERRED TO [facility]IA [facility].
[2019-09-27 11:48] LABS: TROPONIN I 0.041 ng/mL (0.000-0.045)
--- NOTE | 2019-09-27 11:52 | NUR ---
PT AMBULATED TO BR WITH SLOW SHUFFLE GAIT, PT STATES SOME SOB WITH ACTIVITY. O2 SAT 96-98%RA. PT BACK TO [facility] AT THIS TIME, NO OTHER NEEDS
[2019-09-27] MEDS ORDERED: ALBUTEROL HFA 90 MCG/SPRAY INH PRN (12:00)
[2019-09-27] MEDS ORDERED: POLYETHYLENE GLYCOL 17 GM PACKET PO PRN (12:00)
[2019-09-27] MEDS ORDERED: ERGOCALCIFEROL 50,000 UNIT CAPSULE PO SCH (12:00)
[2019-09-27] MEDS ORDERED: ACETAMINOPHEN 325 MG TABLET PO PRN (12:00)
[2019-09-27] MEDS ORDERED: ONDANSETRON ODT 4 MG PO PRN (12:00)
[2019-09-27] MEDS ORDERED: ONDANSETRON 2MG/ML, 2ML IVPush PRN (12:00)
[2019-09-27] MEDS ORDERED: DOCUSATE 100 MG CAPSULE PO PRN (12:00)
--- NOTE | 2019-09-27 13:29 | NUR ---
ADMITTING MD CALLED TO UPDATE PT IS IN 2ND DEGREE TYPE TWO BLOCK, BP STABLE, PT ASYMPTOMATIC TO THIS. MD AWARE, CARDS AWARE.
--- NOTE | 2019-09-27 13:51 | NUR ---
PT TO HOSPITAL BED AT THIS TIME
--- NOTE | 2019-09-27 14:53 | NUR ---
REPORT GIVEN TO RECNAZANIN STEVEN
[2019-09-27] MEDS: ADVAIR MC SCH (16:30)
[2019-09-27 16:59] LABS: TROPONIN I 0.053 ng/mL (0.000-0.045)
[2019-09-27] MEDS ORDERED: ATROPINE SYRINGE 0.1 MG/ML, 10ML IVPush PRN (17:00)
[2019-09-27 20:22] VITALS: BP 163/60
[2019-09-27] MEDS: CALCIUM CARBONATE 500 MG TABLET PO SCH (21:00)
[2019-09-27] MEDS: ATORVASTATIN 40 MG TABLET PO SCH (21:48)
[2019-09-27 23:22] LABS: TROPONIN I 0.039 ng/mL (0.000-0.045)
[2019-09-28] MEDS: ADVAIR MC SCH ×3 (00:30→16:40)
[2019-09-28 02:03] VITALS: BP 160/58
[2019-09-28 06:27] VITALS: BP 160/72
[2019-09-28] MEDS ORDERED: CEFAZOLIN PMX 1GM/50ML 50 ML ONE (07:59)
[2019-09-28] MEDS ORDERED: FENTANYL PF 100 MCG/2ML ONE (07:59)
[2019-09-28] MEDS ORDERED: MIDAZOLAM 1 MG/ML, 5ML ONE (07:59)
[2019-09-28] MEDS ORDERED: CEFAZOLIN 1,000 MG ONE (07:59)
[2019-09-28] MEDS ORDERED: LIDOCAINE 2%, 20ML ONE (07:59)
[2019-09-28] MEDS: SODIUM CHLORIDE 0.9% 1,000 ML IV SCH ×2 (08:04→14:31)
[2019-09-28] MEDS ORDERED: CEFAZOLIN PMX 1GM/50ML 50 ML IVPB ONE (08:30)
[2019-09-28] MEDS ORDERED: BUDESONIDE 0.5 MG/2 ML INHA INH SCH (09:00)
[2019-09-28] MEDS: FERROUS SULFATE 325 MG TABLET PO SCH (09:00)
[2019-09-28] MEDS: ALBUTEROL SULFATE 2.5 MG/3 ML NPPB SCH ×2 (09:00→15:00)
[2019-09-28] MEDS ORDERED: ASPIRIN 81 MG TABLET EC PO SCH (09:00)
[2019-09-28] MEDS ORDERED: ACETAMINOPHEN 325 MG TABLET PO PRN (10:00)
[2019-09-28] MEDS ORDERED: HOLD MEDICATION MC PRN (10:00)
[2019-09-28] MEDS: CALCITRIOL 0.25 MCG CAPSULE PO SCH (10:28)
[2019-09-28] MEDS: CALCIUM CARBONATE 500 MG TABLET PO SCH ×2 (10:28→21:30)
[2019-09-28 12:19] VITALS: BP 119/83
[2019-09-28 14:33] LABS: BASOPHILS # (AUTO) 0.03 x10^3/uL (0-0.1); BASOPHILS % (AUTO) 0 % (0-1); EOSINOPHILS # (AUTO) 0.02 x10^3/uL (0-0.4); EOSINOPHILS % (AUTO) 0 % (1-7); LYMPHOCYTES # (AUTO) 1.04 x10^3/uL (1-3.4); LYMPHOCYTES % (AUTO) 10 % (22-44); MD NO; MEAN CORPUSCULAR HEMOGLOBIN 28.7 pg (27.0-34.8); MEAN CORPUSCULAR HGB CONC 32.3 g/dL (32.4-35.8); MEAN CORPUSCULAR VOLUME 88.7 fL (80-100); MEAN PLATELET VOLUME 9.9 fL (7.4-10.4); MONOCYTES # (AUTO) 0.51 x10^3/uL (0.2-0.8); MONOCYTES % (AUTO) 5 % (2-9); NEUTROPHILS # (AUTO) 9.02 x10^3/uL (1.8-6.8); NEUTROPHILS % (AUTO) 85 % (42-75); PLATELET COUNT 243 x10^3/uL (130-400); RED BLOOD COUNT 4.78 x10^6/uL (3.82-5.3)
[2019-09-28 14:39] LABS: ANION GAP 9 mmol/L (5-15); CALCIUM 8.6 mg/dL (8.5-10.1); CHLORIDE 115 mmol/L (98-107); CREATININE 1.44 mg/dL (0.55-1.02)
[2019-09-28] MEDS: CEFAZOLIN PMX 1GM/50ML 50 ML IVPB SCH (17:28)
[2019-09-28 18:58] VITALS: BP 132/75
[2019-09-28] MEDS: ATORVASTATIN 40 MG TABLET PO SCH (21:30)
[2019-09-28] MEDS: SODIUM CHLORIDE FLUSH 10ML SYR IVF SCH (21:31)
[2019-09-29 01:00] VITALS: BP 140/80
[2019-09-29] MEDS: SODIUM CHLORIDE 0.9% 1,000 ML IV SCH ×2 (01:00→05:27)
[2019-09-29 05:14] LABS: BASOPHILS # (AUTO) 0.03 x10^3/uL (0-0.1); BASOPHILS % (AUTO) 0 % (0-1); EOSINOPHILS # (AUTO) 0.09 x10^3/uL (0-0.4); EOSINOPHILS % (AUTO) 1 % (1-7); LYMPHOCYTES # (AUTO) 1.01 x10^3/uL (1-3.4); LYMPHOCYTES % (AUTO) 10 % (22-44); MD NO; MEAN CORPUSCULAR HEMOGLOBIN 28.4 pg (27.0-34.8); MEAN CORPUSCULAR HGB CONC 31.9 g/dL (32.4-35.8); MEAN CORPUSCULAR VOLUME 89.1 fL (80-100); MEAN PLATELET VOLUME 9.7 fL (7.4-10.4); MONOCYTES # (AUTO) 0.71 x10^3/uL (0.2-0.8); MONOCYTES % (AUTO) 7 % (2-9); NEUTROPHILS # (AUTO) 8.52 x10^3/uL (1.8-6.8); NEUTROPHILS % (AUTO) 82 % (42-75); PLATELET COUNT 205 x10^3/uL (130-400); RED BLOOD COUNT 4.32 x10^6/uL (3.82-5.3); RED CELL DISTRIBUTION WIDTH 14.2 % (9.6-15.2)
[2019-09-29 05:22] LABS: ANION GAP 6 mmol/L (5-15); CALCIUM 8.6 mg/dL (8.5-10.1); CHLORIDE 116 mmol/L (98-107); CREATININE 1.27 mg/dL (0.55-1.02)
[2019-09-29] MEDS: CEFAZOLIN PMX 1GM/50ML 50 ML IVPB SCH (05:31)
[2019-09-29 07:03] VITALS: BP 124/73
[2019-09-29] MEDS: CALCITRIOL 0.25 MCG CAPSULE PO SCH (08:59)
[2019-09-29] MEDS: FERROUS SULFATE 325 MG TABLET PO SCH (08:59)
[2019-09-29] MEDS: CALCIUM CARBONATE 500 MG TABLET PO SCH (09:00)
[2019-09-29] MEDS ORDERED: FLUTICASONE/VILANTEROL 100-25MCG/INH INH SCH (09:00)
[2019-09-29] MEDS: SODIUM CHLORIDE FLUSH 10ML SYR IVF SCH (09:01)
[2019-09-29 13:48] VITALS: BP 132/73
== END 2019-09-29 15:28 | disposition home or self-care (01) | DRG 243 ==
LOC: ED 09:42 → EDIP 10:00 → 5SO 15:53 → DCLOUNGE 09-29 15:19
PROVIDERS: ADMIT Family Medicine; ATTEND Family Medicine
PROC: 0JH606Z Insertion of Pacemaker, Dual Chamber into Chest Subcutaneous Tissue and Fascia, Open Approach (ICD-10-PCS; principal; 2019-09-28)
PROC: 02HK3JZ Insertion of Pacemaker Lead into Right Ventricle, Percutaneous Approach (ICD-10-PCS; 2019-09-28)
PROC: 02H63JZ Insertion of Pacemaker Lead into Right Atrium, Percutaneous Approach (ICD-10-PCS; 2019-09-28)
DX: I44.2 Atrioventricular block, complete (principal); Z68.41 Body mass index [BMI] 40.0-44.9, adult; I50.32 Chronic diastolic (congestive) heart failure; I13.0 Hypertensive heart and chronic kidney disease with heart failure and stage 1 through stage 4 chronic kidney disease, or unspecified chronic kidney disease; I44.1 Atrioventricular block, second degree; D64.9 Anemia, unspecified; E66.01 Morbid (severe) obesity due to excess calories; I48.91 Unspecified atrial fibrillation; I65.23 Occlusion and stenosis of bilateral carotid arteries; I27.20 Pulmonary hypertension, unspecified; E78.5 Hyperlipidemia, unspecified; E86.0 Dehydration; G47.33 Obstructive sleep apnea (adult) (pediatric); I25.10 Atherosclerotic heart disease of native coronary artery without angina pectoris; I27.29 Other secondary pulmonary hypertension; I27.81 Cor pulmonale (chronic); I48.0 Paroxysmal atrial fibrillation; J45.909 Unspecified asthma, uncomplicated; N18.3 Chronic kidney disease, stage 3 (moderate); Z79.82 Long term (current) use of aspirin; Z87.891 Personal history of nicotine dependence; Z95.2 Presence of prosthetic heart valve; Z98.84 Bariatric surgery status; Z79.899 Other long term (current) drug therapy; Z79.84 Long term (current) use of oral hypoglycemic drugs; Z82.49 Family history of ischemic heart disease and other diseases of the circulatory system
CPT/HCPCS: 33208; 36415; 71045; 72170; 80048; 80053; 84484; 85025; 93005; 93880; 99156; 99157; 99285; C1779; C1785; C1892; G0378; J0461; J0690; J2250; J3010; J7030; J7040

== ENCOUNTER 2019-09-30 20:00 | Emergency (ER) | payer MEDICARE ==
[~2019-09-30] VITALS: Ht 160 cm; Wt 116.2 kg
[~2019-09-30 20:00] MED LIST changes: +FERR-46 PO
--- NOTE | 2019-09-30 20:33 | NUR ---
PT TO ED WITH SOB X1 DAY ALONG WITH CHEST TIGHTNESS, DENIES ANY OTHER C/O AT THIS TIME. PT REPORTS PACER PLACED X2 DAYS AGO FOR BRADYCARDIA, CURRENTLY IN NSR WITH PACERSPIKES PRESENT. PT HAS SUBSTANTIAL BRUISING ACROSS LEFT CHEST FROM PACER PLACEMENT, NO BLEEDING NOTED. PT PLACED ON ALL MONITORING, CALL LIGHT WITHIN REACH, ALL SAFETY MEASURES IN PLACE, FAMILY AT BS FOR SUPPORT.
[2019-09-30] MEDS ORDERED: SODIUM CHLORIDE FLUSH 10ML SYR IVF ONE (21:00)
[2019-09-30 21:06] LABS: BASOPHILS # (AUTO) 0.03 x10^3/uL (0-0.1); BASOPHILS % (AUTO) 0 % (0-1); EOSINOPHILS % (AUTO) 3 % (1-7); LYMPHOCYTES # (AUTO) 1.36 x10^3/uL (1-3.4); LYMPHOCYTES % (AUTO) 13 % (22-44); MD NO; MEAN CORPUSCULAR HEMOGLOBIN 28.8 pg (27.0-34.8); MEAN CORPUSCULAR HGB CONC 32.7 g/dL (32.4-35.8); MONOCYTES # (AUTO) 0.96 x10^3/uL (0.2-0.8); MONOCYTES % (AUTO) 9 % (2-9); NEUTROPHILS # (AUTO) 7.54 x10^3/uL (1.8-6.8); NEUTROPHILS % (AUTO) 74 % (42-75); PLATELET COUNT 213 x10^3/uL (130-400); RED BLOOD COUNT 4.37 x10^6/uL (3.82-5.3); RED CELL DISTRIBUTION WIDTH 14.3 % (9.6-15.2)
[2019-09-30 21:12] LABS: ALANINE AMINOTRANSFERASE 14 U/L (12-78); ALBUMIN 3.1 g/dL (3.4-5.0); ANION GAP 8 mmol/L (5-15); CALCIUM 8.1 mg/dL (8.5-10.1); CHLORIDE 112 mmol/L (98-107); CREATININE 1.42 mg/dL (0.55-1.02)
[2019-09-30 21:16] LABS: ALKALINE PHOSPHATASE 83 U/L (45-117); BILIRUBIN,TOTAL 0.7 mg/dL (0.2-1.0); TOTAL PROTEIN 7.6 g/dL (6.4-8.2); TROPONIN I 0.039 ng/mL (0.000-0.045)
--- NOTE | 2019-09-30 21:31 | NUR ---
PT BACK FROM IMAGING AT THIS TIME, UPDATED ON POC. MONITORING REAPPLIED. CALL LIGHT WITHIN REACH, ALL SAFETY MEASURES IN PLACE, FAMILY AT BS.
[2019-09-30 22:35] VITALS: BP 123/70
[2019-09-30] MEDS ORDERED: OMNIPAQUE 350 MG/ML, 150 ML BOTTLE ONE (23:35)
== END 2019-09-30 22:51 | disposition home or self-care (01) ==
LOC: ED 20:30
DX: J90 Pleural effusion, not elsewhere classified (principal); R07.89 Other chest pain; R06.02 Shortness of breath; R00.0 Tachycardia, unspecified; I48.91 Unspecified atrial fibrillation; I10 Essential (primary) hypertension; Z95.0 Presence of cardiac pacemaker
CPT/HCPCS: 36415; 71045; 71275; 80053; 83880; 84484; 85025; 93005; 99285; Q9967

== ENCOUNTER 2020-05-10 07:31 | Outpatient (CLI) | payer MEDICARE | END 2020-05-10 23:59 | disposition home or self-care (01) | LOC: CVU 07:31 | PROVIDERS: ATTEND Internal Medicine Cardiovascular Disease | DX: I08.1 Rheumatic disorders of both mitral and tricuspid valves (principal); E78.5 Hyperlipidemia, unspecified; Z87.891 Personal history of nicotine dependence; Z95.2 Presence of prosthetic heart valve | CPT/HCPCS: 93306 ==

== ENCOUNTER → 2020-09-13 | Outpatient (CLI) | payer MEDICARE | END | disposition home or self-care (01) | LOC: RAD 08:25 | PROVIDERS: ATTEND Internal Medicine Cardiovascular Disease | DX: I65.23 Occlusion and stenosis of bilateral carotid arteries (principal); I67.9 Cerebrovascular disease, unspecified | CPT/HCPCS: 93880 ==

== ENCOUNTER 2020-10-09 06:07 | Day surgery (SDC) | payer MEDICARE ==
[~2020-10-09] VITALS: Ht 160 cm; Wt 125.0 kg
[2020-10-09] MEDS ORDERED: APIX5TAB PO (06:33)
[2020-10-09] MEDS ORDERED: CALC0.25 PO (06:33)
[2020-10-09] MEDS ORDERED: CALC500T29 PO (06:33)
[2020-10-09] MEDS ORDERED: ERGO500017 PO (06:33)
[2020-10-09 07:16] LABS: ANION GAP 4 mmol/L (5-15); CALCIUM 8.3 mg/dL (8.5-10.1); CHLORIDE 112 mmol/L (98-107); CREATININE 1.14 mg/dL (0.55-1.02)
[2020-10-09] MEDS ORDERED: PROPOFOL 10 MG/ML, 20ML ONE (07:28)
[2020-10-09] MEDS ORDERED: SODIUM CHLORIDE FLUSH 10ML SYR IVF SCH (09:00)
== END 2020-10-09 08:58 | disposition home or self-care (01) ==
LOC: CACL 06:07
PROVIDERS: ATTEND Internal Medicine Clinical Cardiac Electrophysiology
DX: I48.0 Paroxysmal atrial fibrillation (principal); I08.0 Rheumatic disorders of both mitral and aortic valves; I47.2 Ventricular tachycardia; I27.20 Pulmonary hypertension, unspecified; I12.9 Hypertensive chronic kidney disease with stage 1 through stage 4 chronic kidney disease, or unspecified chronic kidney disease; N18.9 Chronic kidney disease, unspecified; Z79.01 Long term (current) use of anticoagulants; Z79.899 Other long term (current) drug therapy; Z88.8 Allergy status to other drugs, medicaments and biological substances; Z95.0 Presence of cardiac pacemaker
CPT/HCPCS: 36415; 80048; 92960; 93005; J2704